=== PATIENT | male | born 1990 | race Caucasian/White ===

== ENCOUNTER 2020-02-03 15:02 | Emergency (ER) | payer BC ==
[2020-02-03] MEDS ORDERED: Sodium Chloride 0.9% 10 ML Syringe FLUSH PRN (15:17)
--- NOTE | 2020-02-03 15:21 | EDM.PDOC ---
ED HPI GENERAL MEDICAL PROBLEM - General Chief Complaint: Gastrointestinal Problem Stated Complaint: UNABLE TO EAT AND DRINK Time Seen by Provider: 02/03/20 15:19 Source of Information: Reports: Patient History Limitations: Reports: No Limitations - History of Present Illness INITIAL COMMENTS - FREE TEXT/NARRATIVE: Patient is an unfortunate 29-year-old male presents emergency department today with complaint of unable to eat or drink. Patient reports he has a history of esophageal stricture and his last EGD was in September of this year by Dr. Carroll and reports since that time he has not had any problems until his ago when he started having problems eating food and when he attempted to swallow food he was unable to do so felt pressure in his chest vomited which helped alleviate the pressure but it did not alleviate it completely and then yesterday he started having difficulty drinking he would drink some liquids and then develop a pressure buildup in his chest and then vomit and then feel a little better but the pain is not alleviated so he came to the emergency department today for further evaluation Epigastric Pain Score (Numeric/FACES): 2 - Related Data Allergies Allergy/AdvReac Type Severity Reaction Status Date / Time No Known Allergies Allergy Verified 02/03/20 15:11 Home Meds: Home Meds Omeprazole 20 mg PO DAILY 02/03/20 [History] Past Medical History Gastrointestinal History: Reports: GERD - Past Surgical History GI Surgical History: Reports: EGD Dermatological Surgical History: Reports: Other (See Below) Social & Family History - Tobacco Use Smoking Status *Q: Never Smoker Second Hand Smoke Exposure: No - Caffeine Use Caffeine Use: Reports: None - Recreational Drug Use Recreational Drug Use: No ED ROS GENERAL - Review of Systems Review Of Systems: See Below Constitutional: Denies: Fever, Chills GI/Abdominal: Reports: Abdominal Pain, Vomiting ED EXAM, GI/ABD - Physical Exam Exam: See Below Exam Limited By: No Limitations General Appearance: Alert, WD/WN, Mild Distress Throat/Mouth: Normal Inspection, Normal Lips, Normal Teeth, Normal Gums, Normal Oropharynx, Normal Voice, No Airway Compromise Head: Atraumatic, Normocephalic Neck: Normal Inspection, Supple, Non-Tender, Full Range of Motion Respiratory/Chest: No Respiratory Distress, Lungs Clear, Normal Breath Sounds, No Accessory Muscle Use, Chest Non-Tender Cardiovascular: Normal Peripheral Pulses, Regular Rate, Rhythm, No Edema, No Gallop, No JVD, No Murmur, No Rub GI/Abdominal Exam: Normal Bowel Sounds, Soft, Tender (Epigastric, mild) Back Exam: Normal Inspection, Full Range of Motion, NT Neurological: Alert Skin Exam: Warm, Dry, No Rash Course - Vital Signs Text/Narrative:: chest X-ray interpreted by me MICHAEL Last Recorded V/S: Last Vital Signs Temp 97.9 F 02/03/20 15:08 Pulse 74 02/03/20 15:08 Resp 16 02/03/20 15:08 BP 129/75 02/03/20 15:08 Pulse Ox 96 02/03/20 15:08 - Orders/Labs/Meds Orders: Active Orders 24 hr Category Date Time Status Sodium Chloride 0.9% [Saline Flush] Med 02/03/20 15:17 Active 10 ml FLUSH ASDIRECTED PRN Saline Lock Insert [OM.PC] Stat Oth 02/03/20 15:17 Ordered Medication Orders Sodium Chloride (Saline Flush) 10 ml FLUSH ASDIRECTED PRN PRN Reason: Keep Vein Open Labs: Laboratory Tests 02/03/20 02/03/20 Range/Units 15:30 15:30 WBC 7.13 (4.23-9.07) K/mm3 RBC 5.65 (4.63-6.08) M/mm3 Hgb 15.7 (13.7-17.5) gm/dl Hct 46.1 (40.1-51.0) % MCV 81.6 (79.0-92.2) fl MCH 27.8 (25.7-32.2) pg MCHC 34.1 (32.2-35.5) g/dl RDW Std Deviation 39.8 (35.1-43.9) fL Plt Count 269 (163-337) K/mm3 MPV 11.2 (9.4-12.3) fl Neut % (Auto) 58.5 (34.0-67.9) % Lymph % (Auto) 26.4 (21.8-53.1) % [place] % (Auto) 11.8 (5.3-12.2) % Eos % (Auto) 2.0 (0.8-7.0) Baso % (Auto) 1.0 (0.1-1.2) % Neut # (Auto) 4.18 (1.78-5.38) K/mm3 Lymph # (Auto) 1.88 (1.32-3.57) K/mm3 [place] # (Auto) 0.84 H (0.30-0.82) K/mm3 Eos # (Auto) 0.14 (0.04-0.54) K/mm3 Baso # (Auto) 0.07 (0.01-0.08) K/mm3 Sodium 142 (136-145) mEq/L Potassium 3.8 (3.5-5.1) mEq/L Chloride 104 (98-107) mEq/L Carbon Dioxide 24 (21-32) mEq/L Anion Gap 17.8 H (5-15) BUN 17 (7-18) mg/dL Creatinine 1.0 (0.7-1.3) mg/dL Est Cr Clr Drug Dosing 116.09 mL/min Estimated GFR (MDRD) > 60 (>60) mL/min BUN/Creatinine Ratio 17.0 (14-18) Glucose 88 (74-106) mg/dL Calcium 9.2 (8.5-10.1) mg/dL Total Bilirubin 0.7 (0.2-1.0) mg/dL AST 17 (15-37) U/L ALT 22 (16-63) U/L Alkaline Phosphatase 66 (46-116) U/L Total Protein 8.0 (6.4-8.2) g/dl Albumin 3.9 (3.4-5.0) g/dl Globulin 4.1 gm/dL Albumin/Globulin Ratio 1.0 (1-2) Meds: Medications Generic Name Dose Route Start Last Admin Trade Name Freq PRN Reason Stop Dose Admin Sodium Chloride 10 ml 02/03/20 15:17 Saline Flush FLUSH ASDIRECTED PRN Keep Vein Open - Re-Assessments/Exams Free Text/Narrative Re-Assessment/Exam: 02/03/20 16:[address] King at [facility] in [place] who accepts patient in transfer to the emergency department Departure - Departure Time of Disposition: 16:54 Disposition: DC/Tfer to Hospice-Med Fac [facility] Clinical Impression: Esophageal obstruction - Discharge Information Referrals: Erendira Hutton MD [Primary Care Provider] - Forms: ED Department Discharge Sepsis Event Note (ED) - Evaluation Sepsis Screening Result: No Definite Risk - Focused Exam Vital Signs: Vital Signs Temp Pulse Resp BP Pulse Ox 02/03/20 15:08 97.9 F 74 16 129/75 96 - My Orders Last 24 Hours: My Active Orders 02/03/20 15:17 Sodium Chloride 0.9% [Saline Flush] 10 ml FLUSH ASDIRECTED PRN Saline Lock Insert [OM.PC] Stat - Assessment/Plan Last 24 Hours: My Active Orders 02/03/20 15:17 Sodium Chloride 0.9% [Saline Flush] 10 ml FLUSH ASDIRECTED PRN Saline Lock Insert [OM.PC] Stat
--- NOTE | 2020-02-03 15:56 | CR ---
Chest: 2 views of the chest were obtained. Comparison: No prior chest imaging is available. Heart size and mediastinum are normal. Lungs are clear with no acute parenchymal change. Bony structures appear within normal limits. Impression: 1. Nothing acute is seen on 2 view chest x-ray. Diagnostic code #1 This report was dictated in MDT
== END 2020-02-03 17:38 ==
LOC: JD.ED 15:02
DX: K22.2 Esophageal obstruction (principal); K21.9 Gastro-esophageal reflux disease without esophagitis; Z79.899 Other long term (current) drug therapy
CPT/HCPCS: 36415; 71046; 71046-26; 80053; 85025; 99284; 99285-25